=== PATIENT | male | born 1980 | race Two or more races ===

== ENCOUNTER 2025-04-01 01:57 | Emergency (ER) | payer OTHER ==
[~2025-04-01] VITALS: Ht 182.9 cm; Wt 88.6 kg
[2025-04-01] MEDS: MORPHINE SULFATE 2 MG/ML SYRINGE IM ONE (02:42)
[2025-04-01 02:58] VITALS: BP 136/97; PULSE 67; RESP 17; TEMP 98.1; O2SAT 100
[2025-04-01] MEDS: CYCLOBENZAPRINE HCL 10 MG TABLET PO ONE (05:42)
[2025-04-01] MEDS: LIDOCAINE 5% TRANSDERMAL PATCH TD ONE (05:42)
== END 2025-04-01 07:28 ==
LOC: EMS 02:12
DX: S06.0XAA Concussion with loss of consciousness status unknown, initial encounter (principal); S16.1XXA Strain of muscle, fascia and tendon at neck level, initial encounter; J45.909 Unspecified asthma, uncomplicated; E11.9 Type 2 diabetes mellitus without complications; E03.9 Hypothyroidism, unspecified; E78.00 Pure hypercholesterolemia, unspecified; G89.29 Other chronic pain; F12.90 Cannabis use, unspecified, uncomplicated; F15.90 Other stimulant use, unspecified, uncomplicated; Z98.890 Other specified postprocedural states; Z91.041 Radiographic dye allergy status; W19.XXXA Unspecified fall, initial encounter; Y93.89 Activity, other specified; Y92.031 Bathroom in apartment as the place of occurrence of the external cause; Y99.8 Other external cause status
CPT/HCPCS: 99285; 70450; 72125; 72131; 96372; J2270